=== PATIENT | male | born 1955 | race Caucasian/White ===

== ENCOUNTER 2021-06-15 17:13 | Inpatient (IN) | payer OTHER ==
[2021-06-15] MEDS ORDERED: Cefepime 2 GM VIAL ONE (18:34)
[2021-06-15 18:55] LABS: #Monocytes 0.8 10x3/uL (0.0-1.1); #Neutrophils 7.1 10x3/uL (1.5-8.4); %Basophils 0.1 % (0.0-2.0); %Monocytes 9.4 % (0.0-10.0); %Neutrophils 79.9 % (40.0-75.0); Hemoglobin 10.6 g/dL (13.5-17.5); Mean Corpuscular HGB CONC 33.1 g/dL (32.0-36.0); Mean Corpuscular Hemoglobin 25.9 pg (27.0-33.0); Mean Platelet Volume 9.7 fl (7.4-10.4); Platelet Count 231 10x3/uL (150-450); RBC Distribution Width 13.2 % (11.5-14.5); White Blood Cell (WBC) Count 8.9 10x3/uL (3.5-10.5)
[2021-06-15 19:08] LABS: ALT (SGPT) 37 U/L (8-55); AST (SGOT) 68 U/L (5-34); Albumin 3.4 g/dL (3.4-4.8); Alkaline Phosphatase 80 U/L (40-110); Anion Gap 17 mmol/L (10-20); BUN (Urea Nitrogen) 17 mg/dL (8.4-25.7); Bilirubin, Total 1.1 mg/dL (0.2-1.2); Calc. Creatinine Clearance 0 mL/min (70-130); Calcium 8.4 mg/dL (7.8-10.44); Carbon Dioxide 17 mmol/L (23-31); Chloride 102 mmol/L (98-107); Globulin 3.5 g/dL (2.4-3.5); Glucose 95 mg/dL (80-115); Potassium 3.5 mmol/L (3.5-5.1); Protein, Total 6.9 g/dL (5.8-8.1); Sodium 132 mmol/L (136-145)
[2021-06-15] MEDS ORDERED: HumaLOG 300 UNITS/3 ML VIAL SC PRN (23:47)
[2021-06-15] MEDS ORDERED: Dextrose 50% Abboject 50 ML SYRINGE SLOW IVP PRN (23:47)
[2021-06-15] MEDS ORDERED: Dextrose 5% in Water 1,000 ML IV PRN (23:47)
[2021-06-16] MEDS: Sodium Chloride 0.9% 1,000 ML IV SCH ×2 (00:30→14:39)
[2021-06-16 01:03] VITALS: BMI 36.9
[2021-06-16 04:35] LABS: #Monocytes 0.6 10x3/uL (0.0-1.1); #Neutrophils 6.1 10x3/uL (1.5-8.4); %Basophils 0.1 % (0.0-2.0); %Eosinophils 0.1 % (0.0-6.0); %Lymphocytes 6.9 % (18.0-47.0); %Monocytes 8.3 % (0.0-10.0); %Neutrophils 84.2 % (40.0-75.0); Hemoglobin 10.4 g/dL (13.5-17.5); Mean Corpuscular HGB CONC 33.1 g/dL (32.0-36.0); Mean Corpuscular Hemoglobin 25.5 pg (27.0-33.0); Mean Platelet Volume 9.9 fl (7.4-10.4); Platelet Count 213 10x3/uL (150-450); RBC Distribution Width 13.4 % (11.5-14.5); Red Blood Cell (RBC) Count 4.08 10x6/uL (4.32-5.72); White Blood Cell (WBC) Count 7.2 10x3/uL (3.5-10.5)
[2021-06-16 04:39] LABS: Anion Gap 13 mmol/L (10-20); BUN (Urea Nitrogen) 14 mg/dL (8.4-25.7); Calc. Creatinine Clearance 184 mL/min (70-130); Calcium 8.2 mg/dL (7.8-10.44); Carbon Dioxide 17 mmol/L (23-31); Chloride 108 mmol/L (98-107); Glucose 116 mg/dL (80-115); Potassium 3.8 mmol/L (3.5-5.1); Sodium 134 mmol/L (136-145)
[2021-06-16] MEDS: Cefepime 2 GM in Sodium Chloride 0.9% 100 ML IVPB SCH ×2 (05:34→17:12)
[2021-06-16] MEDS: VANCOMYCIN 1.75 GM/350 ML BAG 1.75 GM in Premix Bag 1 BAG IVPB SCH ×2 (08:51→20:11)
[2021-06-16 09:02] LABS: SARS-CoV-2 NAA Rapid Test Not Detected (NotDetected)
[2021-06-16] MEDS: Acetaminophen 325 MG TAB PO PRN ×2 (09:03→18:23)
[2021-06-16] MEDS: Aspirin 81 mg Enteric Coated Tablet PO SCH (09:03)
[2021-06-16] MEDS: Enoxaparin Sodium 40 MG/0.4 ML SYRINGE SC SCH (09:04)
[2021-06-16] MEDS ORDERED: Bupivacaine 0.25% HCL 30 ML VIAL ONE (09:59)
[2021-06-16] MEDS ORDERED: Propofol 1,000 MG/100 ML VIAL IV ONE (10:52)
[2021-06-16] MEDS ORDERED: Phenylephrine 10 MG/ML VIAL ONE (10:52)
[2021-06-16] MEDS ORDERED: Fentanyl 100 MCG/2 ML VIAL ONE ×2 (10:55→11:15)
[2021-06-16] MEDS ORDERED: Midazolam HCl 5 mg/5 ml Vial ONE (11:05)
[2021-06-16] MEDS ORDERED: Ketamine 50 MG/ML (10ML VIAL) ONE (11:08)
[2021-06-16] MEDS ORDERED: Rocuronium Bromide 10 MG/ML (10ML VIAL) ONE (11:16)
[2021-06-16] MEDS ORDERED: Succinylcholine 200 MG/10 ml SYRINGE FS ONE (11:16)
[2021-06-16] MEDS ORDERED: Glycopyrrolate 0.2 MG/ML 5 ML SYRINGE ONE (11:50)
[2021-06-16] MEDS ORDERED: Esmolol 100 MG/10 ML VIAL ONE (12:11)
[2021-06-16 16:44] LABS: Hemoglobin A1c 5.4 % (4.0-6.0)
[2021-06-16] MEDS ORDERED: Ondansetron PF 4 MG/2 ML Vial IVP SCH (21:30)
[2021-06-16] MEDS: Ziprasidone 20 MG CAP PO SCH (21:40)
[2021-06-16] MEDS: HYDROcodone/Acetaminophen 5/325 mg Tablet PO PRN (21:40)
[2021-06-17] MEDS: Sodium Chloride 0.9% 1,000 ML IV SCH (02:39)
[2021-06-17] MEDS ORDERED: Metoclopramide HCl 10 MG/2 ML VIAL IVP PRN (06:15)
[2021-06-17] MEDS ORDERED: Zolpidem Tartrate 5 MG TAB PO PRN (06:15)
[2021-06-17] MEDS ORDERED: Loperamide HCl 2 MG CAP PO PRN (06:15)
[2021-06-17] MEDS ORDERED: Loratadine 10 MG TAB PO PRN (06:15)
[2021-06-17] MEDS ORDERED: hydrALAZINE 20 MG/ML VIAL SLOW IVP PRN (06:15)
[2021-06-17] MEDS ORDERED: Artificial Tear Sol 15 ML BOT EA EYE PRN (06:15)
[2021-06-17] MEDS ORDERED: GUAIFENESIN SF SOLN 200 MG/10 ML UDCUP PO PRN (06:15)
[2021-06-17] MEDS ORDERED: Calcium Carbonate 500 MG ChewTAB PO PRN (06:15)
[2021-06-17] MEDS ORDERED: Bisacodyl 5 MG TAB PO PRN (06:15)
[2021-06-17] MEDS ORDERED: Cepastat Lozenges 1 LOZ PO PRN (06:15)
[2021-06-17] MEDS ORDERED: Sodium Chloride 0.65% Nasal 44 ML BOT EA NARE PRN (06:15)
[2021-06-17] MEDS ORDERED: Senokot S 8.6-50 MG TAB PO PRN (06:15)
[2021-06-17] MEDS ORDERED: Hydrocerin (Eucerin) Cream 120 gm Jar TOP PRN (06:15)
[2021-06-17] MEDS: HYDROcodone/Acetaminophen 5/325 mg Tablet PO PRN (06:16)
[2021-06-17] MEDS: Cefepime 2 GM in Sodium Chloride 0.9% 100 ML IVPB SCH ×2 (06:16→17:48)
[2021-06-17] MEDS: VANCOMYCIN 1.75 GM/350 ML BAG 1.75 GM in Premix Bag 1 BAG IVPB SCH ×2 (08:25→21:06)
[2021-06-17] MEDS: metFORMIN 500 MG TAB PO SCH ×2 (08:25→21:09)
[2021-06-17] MEDS: Aspirin 81 mg Enteric Coated Tablet PO SCH (08:26)
[2021-06-17] MEDS: Famotidine 20 MG TAB PO SCH ×2 (08:26→21:10)
[2021-06-17] MEDS: Furosemide 20 MG TAB PO SCH ×2 (08:26→21:11)
[2021-06-17] MEDS: Benztropine 1 MG TAB PO SCH (08:26)
[2021-06-17] MEDS: Enoxaparin Sodium 40 MG/0.4 ML SYRINGE SC SCH (08:26)
[2021-06-17] MEDS: NPH, Human Insulin Isophane 300 UNIT/3 ML VIAL SC SCH ×2 (08:26→21:54)
[2021-06-17] MEDS: Lisinopril 5 MG TAB PO SCH (08:26)
[2021-06-17] MEDS: Metoprolol Tartrate 50 MG TAB PO SCH ×2 (08:26→21:11)
[2021-06-17] MEDS ORDERED: NPH, Human Insulin Isophane 300 UNIT/3 ML VIAL SC SCH ×2 (09:00→21:00)
[2021-06-17 19:24] LABS: Vancomycin, Trough 11.9 ug/mL
[2021-06-17] MEDS: Ziprasidone 20 MG CAP PO SCH (21:10)
[2021-06-17] MEDS: Atorvastatin Calcium 40 MG TAB PO SCH (21:10)
[2021-06-18 05:51] LABS: #Eosinphils 0.1 10x3/uL (0.0-0.5); #Monocytes 0.5 10x3/uL (0.0-1.1); #Neutrophils 5.8 10x3/uL (1.5-8.4); %Basophils 0.3 % (0.0-2.0); %Eosinophils 1.5 % (0.0-6.0); %Lymphocytes 11.5 % (18.0-47.0); %Neutrophils 79.2 % (40.0-75.0); Hemoglobin 10.5 g/dL (13.5-17.5); Mean Corpuscular HGB CONC 31.4 g/dL (32.0-36.0); Mean Corpuscular Hemoglobin 25.4 pg (27.0-33.0); Mean Corpuscular Volume 80.7 fl (81.2-95.1); Mean Platelet Volume 9.8 fl (7.4-10.4); Platelet Count 230 10x3/uL (150-450); RBC Distribution Width 13.6 % (11.5-14.5); Red Blood Cell (RBC) Count 4.14 10x6/uL (4.32-5.72); White Blood Cell (WBC) Count 7.3 10x3/uL (3.5-10.5)
[2021-06-18] MEDS: Cefepime 2 GM in Sodium Chloride 0.9% 100 ML IVPB SCH (05:58)
[2021-06-18 07:33] LABS: Anion Gap 12 mmol/L (10-20); BUN (Urea Nitrogen) 9 mg/dL (8.4-25.7); Calc. Creatinine Clearance 220 mL/min (70-130); Calcium 8.1 mg/dL (7.8-10.44); Carbon Dioxide 17 mmol/L (23-31); Chloride 114 mmol/L (98-107); Glucose 95 mg/dL (80-115); Magnesium 2.1 mg/dL (1.6-2.6); Phosphorus 3.5 mg/dL (2.3-4.7); Potassium 4.1 mmol/L (3.5-5.1); Sodium 139 mmol/L (136-145)
[2021-06-18] MEDS: Famotidine 20 MG TAB PO SCH ×2 (09:45→21:17)
[2021-06-18] MEDS: metFORMIN 500 MG TAB PO SCH ×2 (09:48→21:17)
[2021-06-18] MEDS: Lisinopril 5 MG TAB PO SCH (09:48)
[2021-06-18] MEDS: Aspirin 81 mg Enteric Coated Tablet PO SCH (09:48)
[2021-06-18] MEDS: Furosemide 20 MG TAB PO SCH ×2 (09:48→22:57)
[2021-06-18] MEDS: Metoprolol Tartrate 50 MG TAB PO SCH ×2 (09:49→21:17)
[2021-06-18] MEDS: Benztropine 1 MG TAB PO SCH (09:49)
[2021-06-18] MEDS: Enoxaparin Sodium 40 MG/0.4 ML SYRINGE SC SCH (09:55)
[2021-06-18] MEDS: NPH, Human Insulin Isophane 300 UNIT/3 ML VIAL SC SCH ×2 (10:20→22:58)
[2021-06-18] MEDS: cefTRIAXone\\ROCEPHIN 2 GM in Sodium Chloride 0.9% 100 ML IVPB SCH (10:21)
[2021-06-18] MEDS: VANCOMYCIN 1.75 GM/350 ML BAG 1.75 GM in Premix Bag 1 BAG IVPB SCH (10:22)
[2021-06-18] MEDS: Ziprasidone 20 MG CAP PO SCH (21:15)
[2021-06-18] MEDS: Atorvastatin Calcium 40 MG TAB PO SCH (21:17)
[2021-06-18] MEDS: HYDROcodone/Acetaminophen 5/325 mg Tablet PO PRN (21:18)
[2021-06-19 08:02] VITALS: TEMP 98
[2021-06-19] MEDS: Enoxaparin Sodium 40 MG/0.4 ML SYRINGE SC SCH (09:42)
[2021-06-19] MEDS: Acetaminophen 325 MG TAB PO PRN (09:43)
[2021-06-19] MEDS: Benztropine 1 MG TAB PO SCH (09:43)
[2021-06-19] MEDS: Furosemide 20 MG TAB PO SCH (09:43)
[2021-06-19] MEDS: metFORMIN 500 MG TAB PO SCH (09:43)
[2021-06-19] MEDS: Lisinopril 5 MG TAB PO SCH (09:44)
[2021-06-19] MEDS: Aspirin 81 mg Enteric Coated Tablet PO SCH (09:44)
[2021-06-19] MEDS: Metoprolol Tartrate 50 MG TAB PO SCH (09:44)
[2021-06-19] MEDS: Famotidine 20 MG TAB PO SCH (09:44)
[2021-06-19] MEDS: NPH, Human Insulin Isophane 300 UNIT/3 ML VIAL SC SCH (09:45)
[2021-06-19 11:10] VITALS: BP 119/65
== END 2021-06-19 11:11 | DRG 617 ==
LOC: CSHERS 17:13 → CSHTELE 23:40 → EEVIPCON 23:40
PROVIDERS: ADMIT Family Medicine; ATTEND Internal Medicine
PROC: 0Y6P0Z0 Detachment at Right 1st Toe, Complete, Open Approach (ICD-10-PCS; principal; 2021-06-16)
DX: E11.628 Type 2 diabetes mellitus with other skin complications (principal); E11.52 Type 2 diabetes mellitus with diabetic peripheral angiopathy with gangrene; I25.10 Atherosclerotic heart disease of native coronary artery without angina pectoris; I10 Essential (primary) hypertension; E78.5 Hyperlipidemia, unspecified; M19.90 Unspecified osteoarthritis, unspecified site; F31.9 Bipolar disorder, unspecified; L03.031 Cellulitis of right toe; G47.33 Obstructive sleep apnea (adult) (pediatric); M79.5 Residual foreign body in soft tissue; E11.42 Type 2 diabetes mellitus with diabetic polyneuropathy; F25.9 Schizoaffective disorder, unspecified; E11.21 Type 2 diabetes mellitus with diabetic nephropathy; B95.61 Methicillin susceptible Staphylococcus aureus infection as the cause of diseases classified elsewhere; Z20.822 Contact with and (suspected) exposure to COVID-19; Z87.891 Personal history of nicotine dependence
CPT/HCPCS: 36415; 36416; 80048; 80053; 80202; 83036; 83605; 83735; 84100; 85025; 85652; 86140; 87040; 87070; 87077; 87186; 87205; 88305; 93005; 93010; 94760; 96365; 96366; 96367; J0692; J0696; J1650; J1815; J2250; J2370; J2405; J2704; J3010; J3370; J3490; J7050; S0020; U0002

== ENCOUNTER 2021-07-31 14:19 | Emergency (ER) | payer OTHER ==
[2021-07-31] MEDS ORDERED: Morphine 4 MG/ML VIAL ONE (15:41)
[2021-07-31] MEDS ORDERED: Ondansetron PF 4 MG/2 ML Vial ONE (15:42)
[2021-07-31] MEDS ORDERED: Piperacillin/Tazobactam 4.5 GM VIAL ONE (15:42)
[2021-07-31 15:44] LABS: #Basophils 0.1 10x3/uL (0.0-0.2); #Eosinphils 0.4 10x3/uL (0.0-0.5); #Monocytes 0.9 10x3/uL (0.0-1.1); %Basophils 0.5 % (0.0-2.0); %Eosinophils 3.9 % (0.0-6.0); %Lymphocytes 24.1 % (18.0-47.0); %Monocytes 9.1 % (0.0-10.0); %Neutrophils 62.1 % (40.0-75.0); Hemoglobin 9.4 g/dL (13.5-17.5); Mean Corpuscular HGB CONC 31.1 g/dL (32.0-36.0); Mean Platelet Volume 9.2 fl (7.4-10.4); Platelet Count 308 10x3/uL (150-450); RBC Distribution Width 14.7 % (11.5-14.5); Red Blood Cell (RBC) Count 3.92 10x6/uL (4.32-5.72); White Blood Cell (WBC) Count 9.7 10x3/uL (3.5-10.5)
[2021-07-31 15:59] LABS: ALT (SGPT) 16 U/L (8-55); AST (SGOT) 17 U/L (5-34); Albumin 3.8 g/dL (3.4-4.8); Alkaline Phosphatase 95 U/L (40-110); Anion Gap 13 mmol/L (10-20); BUN (Urea Nitrogen) 8 mg/dL (8.4-25.7); Bilirubin, Total 0.5 mg/dL (0.2-1.2); Calc. Creatinine Clearance 0 mL/min (70-130); Carbon Dioxide 22 mmol/L (23-31); Chloride 106 mmol/L (98-107); Globulin 3.5 g/dL (2.4-3.5); Glucose 91 mg/dL (80-115); Potassium 4.6 mmol/L (3.5-5.1); Protein, Total 7.3 g/dL (5.8-8.1); Sodium 136 mmol/L (136-145)
[2021-07-31] MEDS ORDERED: VANCOMYCIN HCL IVPB SCH (16:00)
[2021-07-31] MEDS ORDERED: DEXTROSE 5% IVPB SCH (16:00)
[2021-07-31] MEDS ORDERED: WATER IVPB SCH (16:00)
[2021-07-31 18:24] LABS: SARS-CoV-2 NAA Rapid Test Not Detected (NotDetected)
== END 2021-07-31 21:26 | disposition short-term general hospital (02) ==
LOC: CSHERS 14:19
DX: M86.9 Osteomyelitis, unspecified (principal); L03.115 Cellulitis of right lower limb; I10 Essential (primary) hypertension; I25.10 Atherosclerotic heart disease of native coronary artery without angina pectoris; E11.40 Type 2 diabetes mellitus with diabetic neuropathy, unspecified; E78.5 Hyperlipidemia, unspecified; M19.90 Unspecified osteoarthritis, unspecified site
CPT/HCPCS: 36415; 80053; 83605; 85025; 87040; 87070; 87077; 87186; 87205; 96365; 96366; 96367; 96375; J2270; J2405; J2543; J3370; J7070; U0002

== ENCOUNTER 2024-06-21 15:29 | Emergency (ER) | payer OTHER ==
[~2024-06-21 15:29] MED LIST: Iopamidol 370 76% 100 ML VIAL ONE
[2024-06-21] MEDS ORDERED: Ipratropium/Albuterol 3 ML NEB ONE ×2 (16:15→20:48)
[2024-06-21] MEDS ORDERED: Ondansetron PF 4 MG/2 ML Vial ONE (16:22)
[2024-06-21] MEDS ORDERED: Aspirin 325 MG TAB ONE (16:23)
[2024-06-21 16:31] LABS: INR-International Normal Ratio 1.5; Prothrombin Time 15.6 sec (9.5-12.1)
[2024-06-21 16:39] LABS: ALT (SGPT) 14 U/L (8-55); AST (SGOT) 15 U/L (5-34); Albumin 3.4 g/dL (3.4-4.8); Alkaline Phosphatase 77 U/L (40-110); Anion Gap 14 mmol/L (10-20); BUN (Urea Nitrogen) 10 mg/dL (8.4-25.7); Bilirubin, Total 0.5 mg/dL (0.2-1.2); Calc. Creatinine Clearance 0 mL/min (70-130); Calcium 8.4 mg/dL (7.8-10.44); Carbon Dioxide 25 mmol/L (23-31); Chloride 100 mmol/L (98-107); Estimated GFR 98; Globulin 3.1 g/dL (2.4-3.5); Glucose 133 mg/dL (80-115); Potassium 4.6 mmol/L (3.5-5.1); Protein, Total 6.5 g/dL (5.8-8.1); Sodium 134 mmol/L (136-145)
[2024-06-21 16:41] LABS: #Basophils 0.03 10x3/uL (0.0-0.2); #Monocytes 1.06 10x3/uL (0.0-1.1); #Neutrophils 10.08 10x3/uL (1.5-8.4); %Basophils 0.2 % (0.0-2.0); %Eosinophils 0.8 % (0.0-6.0); %Lymphocytes 8.6 % (18.0-47.0); %Monocytes 8.5 % (0.0-10.0); %Neutrophils 80.8 % (40.0-75.0); Hematocrit 31.6 % (38.8-50.0); Hemoglobin 9.9 g/dL (13.5-17.5); Mean Corpuscular HGB CONC 31.3 g/dL (32.0-36.0); Mean Corpuscular Hemoglobin 26.4 pg (27.0-33.0); Mean Corpuscular Volume 84.3 fL (81.2-95.1); Platelet Count 205 10x3/uL (150-450); RBC Distribution Width 17.7 % (11.5-14.5); Red Blood Cell (RBC) Count 3.75 10x6/uL (4.32-5.72); White Blood Cell (WBC) Count 12.5 10x3/uL (3.5-10.5)
[2024-06-21] MEDS ORDERED: methylPREDNISolone Sod Succ/PF 125 MG/2 ML VIAL ONE (18:00)
[2024-06-21] MEDS ORDERED: Famotidine/PF 20 mg/2ml Vial ONE (18:00)
[2024-06-21] MEDS ORDERED: diphenhydrAMINE 50 MG/ML VIAL ONE (18:00)
[2024-06-21] MEDS ORDERED: cefTRIAXone (ROCEPHIN) 1 GM VIAL ONE (20:28)
[2024-06-21] MEDS ORDERED: Metoprolol Tartrate 25 MG TAB ONE (21:39)
[2024-06-22] MEDS ORDERED: Aspirin Chewable 81 MG TAB ONE (06:27)
[2024-06-22] MEDS ORDERED: metFORMIN 500 MG TAB ONE (06:27)
[2024-06-22] MEDS ORDERED: Ipratropium/Albuterol 3 ML NEB ONE (06:28)
[2024-06-22] MEDS ORDERED: Lactulose 20 GM (30 mL) UDCUP ONE (06:28)
[2024-06-22] MEDS ORDERED: Pantoprazole DR 40 MG TAB PO SCH (07:00)
[2024-06-22] MEDS ORDERED: Ranolazine ER 500 MG TAB PO SCH (07:00)
[2024-06-22] MEDS ORDERED: Insulin NPH Human Isophane 100 UNITS/ML (10 ML VIAL) SC SCH (07:00)
[2024-06-22] MEDS ORDERED: Isosorbide Mononitrate 60 MG ER.TAB PO SCH (07:15)
[2024-06-22] MEDS ORDERED: Cyanocobalamin (Vitamin B-12) 1,000 MCG TAB PO SCH (07:15)
[2024-06-22] MEDS ORDERED: DULoxetine 30 MG CAP PO SCH (07:15)
[2024-06-22] MEDS ORDERED: Lisinopril 20 MG TAB PO SCH (07:15)
== END 2024-06-22 08:30 | disposition short-term general hospital (02) ==
LOC: CSHERS 15:29
DX: J18.9 Pneumonia, unspecified organism (principal); R91.8 Other nonspecific abnormal finding of lung field; R42 Dizziness and giddiness; E11.9 Type 2 diabetes mellitus without complications; I10 Essential (primary) hypertension; E11.40 Type 2 diabetes mellitus with diabetic neuropathy, unspecified; I25.10 Atherosclerotic heart disease of native coronary artery without angina pectoris; Z79.01 Long term (current) use of anticoagulants; Z79.899 Other long term (current) drug therapy; Z79.4 Long term (current) use of insulin; Z79.84 Long term (current) use of oral hypoglycemic drugs; Z79.82 Long term (current) use of aspirin
CPT/HCPCS: 36415; 70450; 70496; 70498; 71045; 80053; 83880; 85025; 85610; 93005; 93010; 94640; 94760; 96361; 96374; 96375; J0696; J1200; J1815; J2405; J2919; J3490; J7620; Q9967

== ENCOUNTER 2024-07-05 14:15 | Emergency (ER) | payer OTHER ==
[2024-07-05] MEDS ORDERED: NOREPINEPHRINE 8 MG/250 ML-D5W 250 ML ONE (14:54)
[2024-07-05 15:11] LABS: Analyzer IN Cardio CS ER; Base Excess -10.7 mEq/L (-2 - +2); Calcium, Ionized (venous) 0.97 mmol/L (1.16-1.32); Chloride (VBG) 97 mmol/L (98-106); Hemoglobin (Hb) 10.9 g/dL (12.6-17.4); Potassium (VBG) 7.58 mmol/L (3.70-5.30); Puncture Site Other Site; RapidComm Collect By RN; Sodium 122 mmol/L (133-146); pH (venous) 7.236 (7.32-7.43)
[2024-07-05 15:39] LABS: #Basophils 0.06 10x3/uL (0.0-0.2); #Eosinophils 0.09 10x3/uL (0.0-0.5); #Neutrophils 15.52 10x3/uL (1.5-8.4); %Basophils 0.3 % (0.0-2.0); %Eosinophils 0.5 % (0.0-6.0); %Monocytes 5.1 % (0.0-10.0); %Neutrophils 78.6 % (40.0-75.0); Hematocrit 37.4 % (38.8-50.0); Hemoglobin 12.4 g/dL (13.5-17.5); Mean Corpuscular HGB CONC 33.2 g/dL (32.0-36.0); Mean Corpuscular Hemoglobin 27.4 pg (27.0-33.0); Mean Corpuscular Volume 82.7 fL (81.2-95.1); Mean Platelet Volume 9.2 fL (7.4-10.4); Platelet Count 256 10x3/uL (150-450); RBC Distribution Width 16.8 % (11.5-14.5); Red Blood Cell (RBC) Count 4.52 10x6/uL (4.32-5.72); White Blood Cell (WBC) Count 19.7 10x3/uL (3.5-10.5)
[2024-07-05 15:54] LABS: Troponin I Less than 0.010 ng/mL (< 0.028)
[2024-07-05 15:55] LABS: ALT (SGPT) 27 U/L (8-55); AST (SGOT) 33 U/L (5-34); Alkaline Phosphatase 81 U/L (40-110); Anion Gap 18 mmol/L (10-20); BUN (Urea Nitrogen) 11 mg/dL (8.4-25.7); Bilirubin, Total 0.4 mg/dL (0.2-1.2); Calc. Creatinine Clearance 0 mL/min (70-130); Calcium 8.6 mg/dL (7.8-10.44); Carbon Dioxide 19 mmol/L (23-31); Chloride 98 mmol/L (98-107); Estimated GFR 87; Globulin 2.5 g/dL (2.4-3.5); Glucose 223 mg/dL (80-115); Potassium 5.9 mmol/L (3.5-5.1); Protein, Total 5.5 g/dL (5.8-8.1); Sodium 129 mmol/L (136-145)
[2024-07-05] MEDS ORDERED: Amiodarone 150 MG/3 ML VIAL ONE (17:00)
[2024-07-05] MEDS ORDERED: Sodium Bicarb 50 MEQ/50 ML Abboject 8.4% SYRINGE ONE (17:00)
[2024-07-05] MEDS ORDERED: EPINEPHrine 1 MG/ML AMP ONE (17:00)
[2024-07-05] MEDS ORDERED: Calcium Chloride 1 GM/10 ML Abboject SYRINGE ONE (17:00)
[2024-07-05] MEDS ORDERED: EPINEPHrine 1 MG/10 ML Abboject SYRINGE ONE (17:00)
== END 2024-07-05 17:10 | disposition short-term general hospital (02) ==
LOC: CSHERS 14:15 → EEVIPCON 14:15 → CSHERS 17:10
DX: I46.9 Cardiac arrest, cause unspecified (principal); E11.9 Type 2 diabetes mellitus without complications; I10 Essential (primary) hypertension; I25.10 Atherosclerotic heart disease of native coronary artery without angina pectoris; E78.5 Hyperlipidemia, unspecified
CPT/HCPCS: 31500; 36556; 70450; 71275; 80053; 82805; 83880; 84484; 85025; 92950; 93005; 93010; 96374; J0171; J0282; J2997